=== PATIENT | female | born 1960 | race Caucasian/White ===

== ENCOUNTER → 2023-07-31 07:39 | Outpatient (REF) | payer BC, SELFPAY | LOC: EMG 07:39 | PROVIDERS: ATTENDING PHYSICIAN Psychiatry & Neurology Neurology; FAMILY PHYSICIAN Nurse Practitioner | DX: G56.03 Carpal tunnel syndrome, bilateral upper limbs (principal); R20.0 Anesthesia of skin | CPT/HCPCS: 95886; 95909 ==

== ENCOUNTER 2023-08-04 06:17 | Emergency (ER) | payer BC, MEDICARE, SELFPAY ==
[2023-08-04 06:18] VITALS: BP 187/81
[2023-08-04 07:12] VITALS: BMI 39.9
[2023-08-04 07:13] VITALS: BP 129/63
--- NOTE | 2023-08-04 07:23 | ED.GENMED ---
History of Present Illness
General
Chief Complaint: Heart Rate Problem
Source: patient
Time Seen by Provider: 08/04/23 07:22
Nursing documentation reviewed up to this point in time: agreed with
Travel History
Have you had any contact with someone who has COVID-19?: No
Do you have any symptoms of coronavirus? Fever > 100 degrees, chills, cough, shortness of breath, sore throat, loss of taste or smell, muscle aches, or headache?: No
History of Present Illness
History of Present Illness:
Patient is a 63-year-old female with past medical history of hypertension high cholesterol presents to the ER for evaluation. She reports last night around 11:15 PM she noticed that her heart was pounding she went to sleep this morning when she got
up she felt jittery and noticed that her phone had multiple alerts on it from her Fitbit. Her Fitbit read a warning that she could have been in A-fib. She has no prior history of A-fib. She denies any palpitations. She only reports that she felt
little jittery when she got up this morning. She denies any chest pain shortness of breath. She does report she was sick Monday with diarrhea and had a stomach bug. She had no associated fevers with this.
She does note however that she did see cardiology previously because when she was having surgery she had a brief episode of asystole lasted for 30 seconds. She did have this workup by cardiology and had a normal cardiac catheterization and normal
cardiac workup. It was felt that this was from a vagal response and surgery.
Past History
Past History
ED Past Medical History: Asthma, HTN, Hypothyroidism, Other and Other
ED Past Surgical History: Gynecological, Orthopedic and Other
Social History
Tobacco: Former smoker
Alcohol: Occasional
Drug: None
Personal:
Living: alone
Employment: Employed
Family History
Family History: Hypertension and CAD
Review of Systems
Review of Systems
Allergies reviewed?: Yes
All Other Systems: ROS reviewed and negative except as documented in HPI and ROS
Constitutional: Reports other (pt felt jittery this am ); Denies fever, fatigue or chills
EENT: Reports no symptoms
Respiratory: Reports no symptoms
Cardiac: Denies chest pain, diaphoresis, palpitations or syncope
ABD/GI: Reports no symptoms
: Reports no symptoms
Musculoskeletal: Reports no symptoms
Skin: Reports no symptoms
Neurological: Reports no symptoms
Psychiatric: Reports no symptoms
Phy Exam
General Physical Exam
General Presentation: no apparent distress
General age: appears stated age
General Skin: warm and dry
General Habitus: normal
General Mental: alert
General Hydration: appears well hydrated
Cardiovascular Exam
Cardiovascular Exam: regular rate/rhythm, no murmur and normal peripheral pulses
Pulmonary Exam
Pulmonary Exam: lungs clear and no respiratory distress
Gastrointestinal Exam
Gastrointestinal Exam: normal bowel sounds
Musculoskeletal Exam
Musculoskeletal Exam: full ROM
Skin Exam
Skin Exam: normal color and warm/dry
Psychiatric Exam
Psychiatric Exam: normal mood/affect
Course
Orders/Labs/Results
Orders:
Orders
08/04/23 06:25
Electrocardiogram (*1) Urgent
Reason for Study: Atrial Fibrillation
EKG- Treatment ONCE
08/04/23 07:16
CR Chest - 2 Views Urgent
Comment:
Reason For Exam: cough
08/04/23 07:17
Complete Blood Count/With Diff Urgent
Comprehensive Metabolic Panel Urgent
PT/INR [Prothrombin Time] Urgent
PTT Urgent
TSH Reflex To Free T4 Urgent
Comment: ADD ON
Troponin I Urgent
08/04/23 08:19
0.9% Sodium Chloride 1000 ml [Nss] 1,000 ml IV BOLUS
08/04/23 09:23
Add On- LAB Urgent
Tests Added?: tsh w/ reflexive t4
Abnormal Lab Results
08/04/23
07:17
MCH 31.3 H pg
(27.0-31.0)
MPV 10.6 H fL
(7.4-10.4)
Monocytes % 10.1 H %
(1.7-9.3)
Chloride 109 H mmol/L
(98-107)
BUN 20 H mg/dl
(7-17)
Glucose 119 H mg/dl
(70-99)
AST 44 H U/L
(14-36)
ALT 53 H U/L
(0-35)
Total Protein 6.1 L g/dl
(6.3-8.2)
08/04/23 07:17
08/04/23 07:17
Vital Signs
Initial and Last Documented VS:
Initial Vital Signs
Pulse Resp BP Pulse Ox
87 20 187/81 97
08/04/23 06:18 08/04/23 06:18 08/04/23 06:18 08/04/23 06:18
Last Documented Vital Signs
Temp Pulse Resp BP Pulse Ox
98.1 F 57 16 124/64 98
08/04/23 09:24 08/04/23 09:24 08/04/23 09:24 08/04/23 09:24 08/04/23 09:24
MDM/Problems Addressed
Differential Diagnosis Includes:
Not limited to A-fib arrhythmia tachycardia
MDM/Problems Addressed:
Patient is 63-year-old female who presented to the ER for evaluations of palpitations last night and was told by her watch for that this morning that she may have been in A-fib. She is a prior history of A-fib. She presented to the ER
asymptomatic. She presents awake alert no acute distress normal sinus rhythm patient was concerned for possible dehydration as she had diarrhea 2 days prior BUN very minimally elevated patient was given a liter of fluids here creatinine normal
white count normal no complaints abdominal pain nausea vomiting diarrhea here. Patient has remained in normal sinus rhythm throughout the ER stay. She has seen cardiology in the past ( Dr Rob ) will DC with cardiology for Holter monitor and
close outpatient follow-up. She is to return if any worsening symptoms.
Chronic conditions affecting care:
htn, high bp copd
*Radiology
Radiology exam reviewed: radiology read reviewed
*Pulse Oximetry
Patient hypoxic: no
*EKG
Interpreted by ED Provider?: Yes
Interpretation: normal
Heart Rate: 77
Rate: normal
Rhythm: sinus
Ischemia: no ischemia
*Critical Care Note
Total Time (30-74mins, 75-104mins- exclusive of procedures): Not Applicable
ED Attending Note
-
Portions of this chart may have been created with voice recognition software.� Occasional wrong word or��sound alike� substitutions may have occurred due to the inherent limitations of voice recognition software.
Discharge Plan
Departure
Patient Disposition: Home (Routine Discharge)
Date of Disposition: 08/04/23
Time of Disposition: 09:23
Patient with high blood pressure during this ER visit?: Yes
Condition: Fair
Covid-19: Not Applicable
Discharge Problem:
Heart palpitations
Instructions: Palpitations (DC), BLOOD PRESSURE
Prescriptions:
No Action
Proventil 17 GM aerosol
1 puff inhalation PRN PRN (Reason: SOB)
multivitamin [[id number]-[id number]] 1 EACH tablet
1 ea PO DAILY
liothyronine 5 MICROGRAM tablet
5 mcg PO DAILY
cholecalciferol (vitamin D3) 5,000 UNIT tablet
1,000 unit PO DAILY
levothyroxine 100 MCG tablet
100 mcg PO DAILY
Patient Comments:
takes the brand name
atorvastatin 40 MG tablet
20 mg PO QPM
polyethylene glycol 3350 17 GRAMS powder in packet
17 grams PO DAILY
aspirin 81 MG tablet,delayed release (DR/EC)
81 mg PO DAILY
loratadine 10 MG capsule
10 mg PO DAILY
spironolactone 25 MG tablet
25 mg PO DAILY
amlodipine 10 MG tablet
10 mg PO DAILY
PreserVision AREDS 1 CAP capsule
1 cap PO BID
Lasix:
20 mg PO DAILY
Cannabis
1 dose inhalation PRN PRN (Reason: anxiety)
valsartan 320 mg Tablet
320 mg PO DAILY
Referrals:
Vivi Patrick MD [Family Provider] -
Ata Patricia MD [Active] -
Interventions
Interventions:
*Risk Screen - Suicide Last Done: 08/04/23 06:18
*General Assessment Last Done: 08/04/23 06:18
*Neglect/Abuse Screening Last Done: 08/04/23 06:18
ED- Fall Risk Assessment Last Done: 08/04/23 06:18
*ED COVID-19 Vaccine History Last Done: 08/04/23 06:18
*Nursing Disposition Last Done: 08/04/23 09:56
ED- Cardiac Assessment Last Done: 08/04/23 07:12
ED- Pulmonary Assessment Last Done: 08/04/23 07:12
Discharge Date and Time
Discharge Date/Time: 08/04/23 09:56
[2023-08-04 07:45] LABS: % Basophils 0.4 % (0-2); % Immature Granulocytes 0.2 % (0-0.5); % Lymphocytes 31.8 % (20.5-51.1); % Monocytes 10.1 % (1.7-9.3); % Neutrophils 55.5 % (42.2-75.2); Absolute Eosinophils 0.1 10^3/uL (0-0.7); Absolute Lymphocytes 1.7 10^3/uL (1.2-3.4); Absolute Monocytes 0.6 10^3/uL (0.1-0.6); Hematocrit 38.8 % (37.0-47.0); Hemoglobin 13.6 g/dL (12.0-16.0); Mean Corp Hgb Conc. 35.1 g/dL (33.0-37.0); Mean Corpuscular Hgb 31.3 pg (27.0-31.0); Mean Corpuscular Volume 89.4 fL (81.0-99.0); Mean Platelet Volume 10.6 fL (7.4-10.4); Nucleated Red Blood Cells % 0 %; Platelet Count 296 10^3/uL (130-400); Red Blood Cell Count 4.34 10^6/uL (4.20-5.40); Red Cell Dist. Width 13.2 % (11.5-14.5); White Blood Cell Count 5.5 10^3/uL (4.8-10.8)
[2023-08-04 07:55] LABS: ALT (SGPT) 53 U/L (0-35); AST (SGOT) 44 U/L (14-36); Albumin 3.6 g/dl (3.5-5.0); Alkaline Phosphatase 118 U/L (38-126); Blood Urea Nitrogen 20 mg/dl (7-17); Calcium 9.2 mg/dl (8.4-10.2); Carbon Dioxide 22 mmol/L (22-30); Chloride 109 mmol/L (98-107); Estimated Creatinine Clearance 98 ml/min; Glucose 119 mg/dl (70-99); Potassium 3.8 mmol/L (3.5-5.1); Sodium 136 mmol/L (135-145); Total Bilirubin 1.3 mg/dl (0.2-1.3); Total Protein 6.1 g/dl (6.3-8.2); eGFR > 60.00
[2023-08-04 07:58] LABS: Troponin I < 0.012 ng/ml
[2023-08-04 08:00] VITALS: BP 124/61
[2023-08-04 08:17] VITALS: BP 123/64
[2023-08-04 08:26] LABS: APTT 27.1 Sec (23.4-35.0); INR 1.02; PT 13.2 Sec (11.4-14.6)
[2023-08-04 09:00] VITALS: BP 127/64
[2023-08-04] MEDS: NSS 1000 IV (09:00)
[2023-08-04 09:24] VITALS: BP 124/64
[2023-08-04 10:36] LABS: TSH Reflex To Free T4 2.13 uIU/ml (0.47-4.68)
== END 2023-08-04 09:56 | disposition home or self-care (01) ==
LOC: EMR 06:17
PROVIDERS: EMERGENCY PHYSICIAN Emergency Medicine; FAMILY PHYSICIAN Internal Medicine
DX: R00.2 Palpitations (principal); R19.7 Diarrhea, unspecified; J44.89 Other specified chronic obstructive pulmonary disease; I10 Essential (primary) hypertension; I48.91 Unspecified atrial fibrillation; E78.00 Pure hypercholesterolemia, unspecified; Z87.891 Personal history of nicotine dependence
CPT/HCPCS: 99285; 96360; 71046; 80053; 84443; 84484; 85025; 85610; 85730; 93005

== ENCOUNTER → 2023-09-19 06:48 | Outpatient (REF) | payer BC, MEDICARE, SELFPAY ==
[2023-09-19 07:27] LABS: % Basophils 0.8 % (0-2); % Eosinophils 2.4 % (0-6); % Immature Granulocytes 0.2 % (0-0.5); % Lymphocytes 29.8 % (20.5-51.1); % Monocytes 7.4 % (1.7-9.3); % Neutrophils 59.4 % (42.2-75.2); Absolute Basophils 0.1 10^3/uL (0-0.2); Absolute Eosinophils 0.2 10^3/uL (0-0.7); Absolute Lymphocytes 2.6 10^3/uL (1.2-3.4); Absolute Monocytes 0.7 10^3/uL (0.1-0.6); Absolute Neutrophils 5.2 10^3/uL (1.4-6.5); Hematocrit 40.4 % (37.0-47.0); Hemoglobin 13.9 g/dL (12.0-16.0); Mean Corp Hgb Conc. 34.4 g/dL (33.0-37.0); Mean Corpuscular Hgb 31.4 pg (27.0-31.0); Mean Corpuscular Volume 91.4 fL (81.0-99.0); Mean Platelet Volume 10.5 fL (7.4-10.4); Nucleated Red Blood Cells % 0 %; Platelet Count 366 10^3/uL (130-400); Red Blood Cell Count 4.42 10^6/uL (4.20-5.40); Red Cell Dist. Width 13.2 % (11.5-14.5); White Blood Cell Count 8.8 10^3/uL (4.8-10.8)
[2023-09-19 07:54] LABS: ALT (SGPT) 37 U/L (0-35); AST (SGOT) 30 U/L (14-36); Albumin 4.4 g/dl (3.5-5.0); Alkaline Phosphatase 120 U/L (38-126); Blood Urea Nitrogen 20 mg/dl (7-17); Calcium 10.4 mg/dl (8.4-10.2); Carbon Dioxide 27 mmol/L (22-30); Chloride 102 mmol/L (98-107); Glucose 114 mg/dl (70-99); HDL Cholesterol 42 mg/dl; LDL Cholesterol, Calculated 40 mg/dl; Potassium 4.3 mmol/L (3.5-5.1); Sodium 137 mmol/L (135-145); Total Bilirubin 1.4 mg/dl (0.2-1.3); Total Cholesterol 126 mg/dl (50-199); Triglyceride 220 mg/dl (10-149); Very Low Density Lipoprotein 44 mg/dl (0-30); eGFR > 60.00
[2023-09-19 08:24] LABS: TSH 2.19 uIU/ml (0.47-4.68)
== END ==
LOC: REG 06:48
PROVIDERS: ATTENDING PHYSICIAN Nurse Practitioner
DX: Z01.818 Encounter for other preprocedural examination (principal); G47.33 Obstructive sleep apnea (adult) (pediatric); I10 Essential (primary) hypertension; E78.5 Hyperlipidemia, unspecified; I48.0 Paroxysmal atrial fibrillation; E66.01 Morbid (severe) obesity due to excess calories
CPT/HCPCS: 36415; 80053; 80061; 84443; 85025

== ENCOUNTER 2023-09-25 06:41 | Day surgery (SDC) | payer BC, SELFPAY ==
[2023-09-25 09:15] VITALS: BP 157/69; BMI 39.2
[2023-09-25 09:29] VITALS: BMI 39.2
[2023-09-25] MEDS: NORMOSOL-R 1000 IV (09:38)
[2023-09-25 11:27] VITALS: BP 120/58
[2023-09-25 11:30] VITALS: BP 118/60
[2023-09-25 11:45] VITALS: BP 136/68
[2023-09-25 12:00] VITALS: BP 141/62
[2023-09-25 12:07] VITALS: BP 141/66
== END 2023-09-25 12:20 | disposition home or self-care (01) ==
LOC: SDS 06:41
PROVIDERS: ATTENDING PHYSICIAN Orthopaedic Surgery Hand Surgery
DX: G56.02 Carpal tunnel syndrome, left upper limb (principal)
CPT/HCPCS: 64721

== ENCOUNTER → 2023-10-06 07:34 | Outpatient (REF) | payer BC, SELFPAY ==
[2023-10-06 09:38] LABS: Glycohemoglobin (HgbA1c) 6.4 % (4.0-5.6)
== END ==
LOC: REG 07:34
PROVIDERS: ATTENDING PHYSICIAN Nurse Practitioner
DX: E66.01 Morbid (severe) obesity due to excess calories (principal)
CPT/HCPCS: 36415; 83036

== ENCOUNTER → 2023-10-17 16:01 | Outpatient (REF) | payer BC, SELFPAY | LOC: WDC 16:01 | PROVIDERS: ATTENDING PHYSICIAN Nurse Practitioner; FAMILY PHYSICIAN Internal Medicine | DX: Z12.31 Encounter for screening mammogram for malignant neoplasm of breast (principal); Z00.00 Encounter for general adult medical examination without abnormal findings | CPT/HCPCS: 77063; 77067 ==

== ENCOUNTER → 2023-11-29 08:03 | Outpatient (REF) | payer BC, SELFPAY | LOC: RCS 08:03 | PROVIDERS: ATTENDING PHYSICIAN Internal Medicine Cardiovascular Disease; FAMILY PHYSICIAN Internal Medicine | DX: R00.2 Palpitations (principal); I10 Essential (primary) hypertension; E78.5 Hyperlipidemia, unspecified; G47.33 Obstructive sleep apnea (adult) (pediatric) | CPT/HCPCS: 93306 ==

== ENCOUNTER → 2024-03-18 06:42 | Outpatient (REF) | payer BC, SELFPAY ==
[2024-03-18 08:55] LABS: ALT (SGPT) 30 U/L (0-35); AST (SGOT) 22 U/L (14-36); Albumin 4.2 g/dl (3.5-5.0); Alkaline Phosphatase 121 U/L (38-126); Blood Urea Nitrogen 18 mg/dl (7-17); Calcium 10.2 mg/dl (8.4-10.2); Carbon Dioxide 24 mmol/L (22-30); Chloride 103 mmol/L (98-107); Glucose 104 mg/dl (70-99); Potassium 4.2 mmol/L (3.5-5.1); Sodium 142 mmol/L (135-145); Total Bilirubin 1.4 mg/dl (0.2-1.3); Total Protein 6.7 g/dl (6.3-8.2); eGFR > 60.00
[2024-03-18 09:10] LABS: Glycohemoglobin (HgbA1c) 5.6 % (4.0-5.6)
[2024-03-18 09:16] LABS: TSH 0.22 uIU/ml (0.47-4.68)
== END ==
LOC: REG 06:42
PROVIDERS: ATTENDING PHYSICIAN Internal Medicine Endocrinology, Diabetes & Metabolism; FAMILY PHYSICIAN Nurse Practitioner
DX: E06.3 Autoimmune thyroiditis (principal); R73.03 Prediabetes; I10 Essential (primary) hypertension
CPT/HCPCS: 36415; 80053; 83036; 84443

== ENCOUNTER → 2024-09-05 07:39 | Outpatient (REF) | payer BC, SELFPAY ==
[2024-09-05 09:09] LABS: Glycohemoglobin (HgbA1c) 5.7 % (4.0-5.6)
[2024-09-05 11:37] LABS: ALT (SGPT) 40 U/L (0-35); AST (SGOT) 23 U/L (14-36); Albumin 3.9 g/dl (3.5-5.0); Alkaline Phosphatase 108 U/L (38-126); Blood Urea Nitrogen 19 mg/dl (7-17); Calcium 10.2 mg/dl (8.4-10.2); Carbon Dioxide 29 mmol/L (22-30); Chloride 104 mmol/L (98-107); Glucose 75 mg/dl (70-99); Potassium 4.4 mmol/L (3.5-5.1); Sodium 141 mmol/L (135-145); Total Bilirubin 1.1 mg/dl (0.2-1.3); Total Protein 6.2 g/dl (6.3-8.2); eGFR > 60.00
[2024-09-05 11:54] LABS: TSH 0.21 uIU/ml (0.47-4.68)
== END ==
LOC: REG 07:39
PROVIDERS: ATTENDING PHYSICIAN Internal Medicine Endocrinology, Diabetes & Metabolism
DX: E06.3 Autoimmune thyroiditis (principal); R73.03 Prediabetes; I10 Essential (primary) hypertension
CPT/HCPCS: 36415; 80053; 83036; 84443

== ENCOUNTER → 2024-10-08 07:06 | Outpatient (REF) | payer BC, SELFPAY ==
[2024-10-08 07:42] LABS: % Basophils 0.6 % (0-2); % Immature Granulocytes 0.2 % (0-0.5); % Lymphocytes 24.8 % (20.5-51.1); % Monocytes 7.1 % (1.7-9.3); % Neutrophils 65.3 % (42.2-75.2); Absolute Basophils 0.1 10^3/uL (0-0.2); Absolute Eosinophils 0.2 10^3/uL (0-0.7); Absolute Monocytes 0.6 10^3/uL (0.1-0.6); Absolute Neutrophils 5.4 10^3/uL (1.4-6.5); Hematocrit 38.1 % (37.0-47.0); Hemoglobin 13.1 g/dL (12.0-16.0); Mean Corp Hgb Conc. 34.4 g/dL (33.0-37.0); Mean Corpuscular Hgb 31.7 pg (27.0-31.0); Mean Corpuscular Volume 92.3 fL (81.0-99.0); Mean Platelet Volume 10.4 fL (7.4-10.4); Nucleated Red Blood Cells % 0 %; Platelet Count 348 10^3/uL (130-400); Red Blood Cell Count 4.13 10^6/uL (4.20-5.40); Red Cell Dist. Width 13.4 % (11.5-14.5); White Blood Cell Count 8.2 10^3/uL (4.8-10.8)
[2024-10-08 08:24] LABS: ALT (SGPT) 22 U/L (0-35); AST (SGOT) 27 U/L (14-36); Albumin 4.3 g/dl (3.5-5.0); Alkaline Phosphatase 98 U/L (38-126); Blood Urea Nitrogen 27 mg/dl (7-17); Calcium 10.1 mg/dl (8.4-10.2); Carbon Dioxide 28 mmol/L (22-30); Chloride 106 mmol/L (98-107); Glucose 102 mg/dl (70-99); HDL Cholesterol 34 mg/dl; LDL Cholesterol, Calculated 65 mg/dl; Sodium 140 mmol/L (135-145); Total Bilirubin 1.6 mg/dl (0.2-1.3); Total Cholesterol 131 mg/dl (50-199); Total Protein 6.8 g/dl (6.3-8.2); Triglyceride 162 mg/dl (10-149); Very Low Density Lipoprotein 32 mg/dl (0-30); eGFR > 60.00
[2024-10-08 08:40] LABS: Microalbumin, Random Urine 1.8 mg/dl (0.6-1.7)
[2024-10-08 08:44] LABS: TSH 2.01 uIU/ml (0.47-4.68)
[2024-10-08 09:07] LABS: Glycohemoglobin (HgbA1c) 5.5 % (4.0-5.6)
== END ==
LOC: REG 07:06
PROVIDERS: ATTENDING PHYSICIAN Nurse Practitioner
DX: E11.9 Type 2 diabetes mellitus without complications (principal); Z00.00 Encounter for general adult medical examination without abnormal findings; E03.9 Hypothyroidism, unspecified; E78.5 Hyperlipidemia, unspecified
CPT/HCPCS: 36415; 80053; 80061; 82043; 83036; 84443; 85025

== ENCOUNTER → 2024-10-09 11:01 | Outpatient (REF) | payer BC, SELFPAY | LOC: RAD 11:01 | PROVIDERS: ATTENDING PHYSICIAN Nurse Practitioner; FAMILY PHYSICIAN Internal Medicine | DX: M81.0 Age-related osteoporosis without current pathological fracture (principal) | CPT/HCPCS: 77080 ==

== ENCOUNTER → 2024-11-11 13:45 | Outpatient (REF) | payer BC, SELFPAY | LOC: WDC 13:45 | PROVIDERS: ATTENDING PHYSICIAN Nurse Practitioner | DX: Z12.31 Encounter for screening mammogram for malignant neoplasm of breast (principal) | CPT/HCPCS: 77063; 77067 ==